=== PATIENT | male | born 1990 ===

== ENCOUNTER 2016-09-24 11:09 | Emergency (ER) | payer BC, OTHER ==
--- NOTE | 2016-09-24 13:51 | UC ---
Lower Extremity/Ankle HPI - HPI Summary HPI Summary: 26 y/o male presents to the urgent care c/o muscular pain on his left thigh since this morning when he woke up at 5am. Pt reports he did a lot of squats yesterday at the [employer] and he thinks he over did it. He reports he hasn't done exercise in a long time. Pt states muscle pain 7/10. It feels very sore specially with hyperextension of his quadriceps. He took 1 tab of Naproxen 500mg POand 2 tabs of ibuprofen 200mg PO at once to alleviate symptoms about 3 hrs ago. Pain improved a little bit. Pt denies fever, Knee pain, chest pain, N/ V/D. Pt has not other complains. - History of Current Complaint Chief Complaint: UCLowerExtremity Stated Complaint: MUSCLE PAIN HIP TO KNEE LT LEG Time Seen by Provider: 09/24/16 13:18 Hx Obtained From: Patient Onset/Duration: Gradual Onset, Lasting Hours Severity Initially: Moderate Severity Currently: Severe Pain Intensity: 8 Pain Scale Used: 0-10 Numeric Aggravating Factor(s): Ambulation Alleviating Factor(s): Rest, Ice, OTC Meds Able to Bear Weight: Yes - Risk Factors Gout Risk Factors: Negative DVT Risk Factors: Negative Septic Arthritis Risk Factor: Negative - Allergies/Home Medications Allergies/Adverse Reactions: Allergies Allergy/AdvReac Type Severity Reaction Status Date / Time No Known Allergies Allergy Verified 09/24/16 11:32 Home Medications: Home Medications Ibuprofen [Advil] 200 mg PO 09/24/16 [History] Naproxen [Naproxen DR 500 MG TAB] 500 mg PO 09/24/16 [History] PMH/Surg Hx/FS Hx/Imm Hx Previously Healthy: Yes Respiratory History: Asthma - controlled - Surgical History Surgical History: Yes - Family History Known Family History: Positive: None - Social History Occupation: Employed Full-time Lives: With Family Alcohol Use: Daily Substance Use Type: None Smoking Status (MU): Former Smoker Review of Systems Constitutional: Negative - Left thigh pain Skin: Negative Eyes: Negative ENT: Negative Respiratory: Negative Cardiovascular: Negative Gastrointestinal: Negative Genitourinary: Negative Motor: Negative Neurovascular: Negative Musculoskeletal: Decreased ROM All Other Systems Reviewed And Are Negative: Yes Physical Exam Triage Information Reviewed: Yes Appearance: Well-Appearing, No Pain Distress, Well-Nourished Vital Signs: Initial Vital Signs Temp 98.1 F 09/24/16 11:24 Pulse 54 09/24/16 11:24 Resp 16 09/24/16 11:24 BP 118/66 09/24/16 11:24 Pulse Ox 100 09/24/16 11:24 Vital Signs Reviewed: Yes Eye Exam: Normal Eyes: Positive: Conjunctiva Clear - PERRLA, EOMI, fundi grossly normal ENT Exam: Normal ENT: Positive: Normal ENT inspection, Hearing grossly normal, Pharynx normal, TMs normal Dental Exam: Normal Neck exam: Normal Neck: Positive: Supple, Nontender, No Lymphadenopathy Respiratory Exam: Normal Respiratory: Positive: Chest non-tender, Lungs clear, Normal breath sounds Cardiovascular Exam: Normal Cardiovascular: Positive: RRR, No Murmur, Pulses Normal Abdominal Exam: Normal Abdomen Description: Positive: Nontender, No Organomegaly, Soft. Negative: CVA Tenderness (R), CVA Tenderness (L) Bowel Sounds: Positive: Present Musculoskeletal: Positive: Strength Intact, ROM Intact, No Edema, Other: - tenderness to palpation at the mid left thigh and above the left patella, no swelling, erythema or bruises noted. FROM of left Hip and decrease extension of left knee due to knee pain. No tenderness over the patella or left knee. Positive pulses, sensation and capillary refill intact in allaextremities. Neurological Exam: Normal Psychological Exam: Normal Skin Exam: Normal Lower Extremity Course/Dx - Course Course Of Treatment: 26 y/o male presents to the urgent care c/o muscular pain on his left thigh since this morning when he woke up at 5am. Pt reports he did a lot of [facility] yesterday at the [facility] and he thinks he over did it. He reports he hasn't done exercise in a long time. Pt states muscle pain /10. It feels very sore specially with hyperextension of his quadriceps. He took 1 tab of Naproxen 500mg POand 2 tabs of ibuprofen 200mg PO at once to alleviate symptoms about 3 hrs ago. Pain improved a little bit. Pt denies fever, Knee pain, chest pain, N/V/D.Hx obtained. PE abnormal findings: tenderness to palpation at the mid left thigh and above the left patella, no swelling, erythema or bruises noted. FROM of left Hip and decrease extension of left knee due to knee pain. No tenderness over the patella or left knee. Positive pulses , sensation and capillary refill intact in all extremities. Pt vital signs wnl , Most likely a muscle strain. Pt's thigh wrapped with an wilda bandage and immobilized with a knee splint. Pt Rx Ibuprofen q6-8hr prn for pain, but to start next dose in 6hrs, increase fluid intake, RICE, f/u with Orthopedic Dr Ascencio if symptoms do not improve in 1 week. Pt understood and agreed and left the clinic ambulating. - Differential Dx/Diagnosis Differential Diagnosis/HQI/PQRI: Sprain, Strain, Tendonitis, Other - Muscle strain, muscle tear, Rabdomyolysis Provider Diagnoses: 1- Left knee Muscle strain Discharge - Discharge Plan Condition: Stable Disposition: HOME Patient Education Materials: Muscle Strain (ED) Referrals: [facility] [place]Outside] Dick Ascencio MD [Medical Doctor] - 1 Week No Primary Care Phys,NOPCP [Primary Care Provider] - Additional Instructions: Please continue taking Ibuprofen 600mg PO q6-8hr to alleviate pain. Rest, apply ice and elevate leg. Avoid strenuous exercise. Increase fluid intake with gatorade or water. Please f/u with Orthopedic is symptoms do not improve or worsen. If you feel weak and pain is increasing despite Ibuprofen please gp to the ER immediately.
== END 2016-09-24 14:00 | disposition home or self-care (01) ==
LOC: UCEAST 11:09
DX: S83.92XA Sprain of unspecified site of left knee, initial encounter (principal); X50.3XXA Overexertion from repetitive movements, initial encounter; Y93.B9 Activity, other involving muscle strengthening exercises; Y92.39 Other specified sports and athletic area as the place of occurrence of the external cause; Y99.8 Other external cause status
CPT/HCPCS: 99203; G0463

== ENCOUNTER 2017-02-18 16:52 | Emergency (ER) | payer BC ==
[2017-02-18 17:02] VITALS: BP 117/61
[2017-02-18] MEDS ORDERED: oxyCODONE/Acetamin 5/325 MG* TAB PO ONE (18:52)
[2017-02-18] MEDS ORDERED: Amoxicillin/Clavulanate TAB* 875 MG PO ONE (18:52)
--- NOTE | 2017-02-18 19:11 | UC ---
Cory Hendricks Gabriel, scribed for Carlos Mackey MD on 02/18/17 at 1849 . Dental HPI - HPI Summary HPI Summary: This patient is a 27 year old M presenting to [facility] with a chief complaint of dental pain since 02/11/17. The patient rates the pain 9/10 in severity. Patient reports chills, swollen face, and limited jaw mobility. Pt states he had all four wisdom teeth extracted a week ago and believes the sutures came undone while eating recently. This has caused increased pain and swelling. He is taking amoxicillin and hasnt smoked since extraction. - History of Current Complaint Chief Complaint: UCDentalProblem Stated Complaint: FACIAL SWELLING Time Seen by Provider: 02/18/17 18:38 Hx Obtained From: Patient Onset/Duration: Lasting Weeks - 1, Still Present Severity: Severe Pain Intensity: 9 Pain Scale Used: 0-10 Numeric Aggravating Factor(s): Chewing Related History: Previous Dental Care on Same Tooth - Allergies/Home Medications Allergies/Adverse Reactions: Allergies Allergy/AdvReac Type Severity Reaction Status Date / Time No Known Allergies Allergy Verified 09/24/16 11:32 Home Medications: Home Medications Amoxicillin PO (*) [Amoxicillin 500 MG CAP*] 500 mg PO TID 02/18/17 [History Confirmed 02/18/17] PMH/Surg Hx/FS Hx/Imm Hx Previously Healthy: Yes - Surgical History Surgical History: Yes Surgery Procedure, Year, and Place: wisdome teeth extraction - Family History Known Family History: Negative: Diabetes, Renal Disease - Social History Occupation: Employed Full-time Alcohol Use: Rare Substance Use Type: Marijuana Substance Use Comment - Amount & Last Used: once a week Smoking Status (MU): Smoker, Current Status Unknown Review of Systems Constitutional: Chills ENT: Dental Pain, Other - cheek swelling and limited jaw mobility All Other Systems Reviewed And Are Negative: Yes Physical Exam Triage Information Reviewed: Yes Appearance: Pain Distress Vital Signs: Initial Vital Signs Temp 98.7 F 02/18/17 16:57 Pulse 80 02/18/17 16:57 Resp 18 02/18/17 16:57 BP 117/61 02/18/17 16:57 Vital Signs Reviewed: Yes Eye Exam: Normal ENT: Positive: Other - the patient has limited opening of the mouth due to pain , he has swelling to the buccal side of his gingival area mandible with tenderness and tenseness over the left mandibular face, and into the upper left neck side. He has no stridor or drooling. Dental Complaint Course/Dx - Course Course Of Treatment: 27 yr old with facial and upper left neck swelling a week after his wisdom tooth extraction. Recommended to go to the ER for further eval by ambulance given the amount of swelling and also his inability to open mouth much. He signed out AMA. He states he is driving himself, and pain meds not given due to this. he has been already taking motrin with no relief. Risk of airway compromise understood. AMA signed. - Differential Dx/Diagnosis Provider Diagnoses: dental/facial neck abscess with pain left side. Discharge - Discharge Plan Condition: Good Disposition: AGAINST MEDICAL ADVICE Referrals: No Primary Care Phys,NOPCP [Primary Care Provider] - The documentation as recorded by the Cory pickard Gabriel accurately reflects the service I personally performed and the decisions made by me, Carlos Mackey MD.
== END 2017-02-18 19:00 | disposition left against medical advice (07) ==
LOC: UCEAST 16:52
DX: K04.7 Periapical abscess without sinus (principal); L02.01 Cutaneous abscess of face; R51 Headache
CPT/HCPCS: 99212; A9270-GY; G0463

== ENCOUNTER 2017-02-18 19:16 | Emergency (ER) | payer BC ==
[2017-02-18] MEDS ORDERED: Piperacillin/Tazobac ADVAN(*) 3.375 GM in NS 0.9% 100 ML* 100 ML IVPB ONE (20:45)
[2017-02-18] MEDS ORDERED: Vancomycin(*) 1,000 MG in NS 0.9% 250 ML* 250 ML IVPB ONE (20:46)
[2017-02-18] MEDS ORDERED: Dexamethasone IV* 4 MG/ML 1 ML (4 MG) IV SLOW PU ONE (20:46)
[2017-02-18] MEDS ORDERED: Morphine INJ* 4 MG/ML 1 ML CARPUJECT IV ONE ×2 (20:47→22:34)
[2017-02-18] MEDS ORDERED: NS 0.9% 1000 ML* 1,000 ML IV ONE (20:48)
[2017-02-18] MEDS ORDERED: Metoclopramide IV* 5 MG/ML 2 ML VIAL IV SLOW PU ONE (20:48)
[2017-02-18 21:11] LABS: Hematocrit 42 % (42-52); Hemoglobin 14.2 g/dl (14.0-18.0); Mean Corpuscular HGB Conc 34 g/dl (31-36); Mean Corpuscular Hemoglobin 30 pg (27-31); Mean Corpuscular Volume 89 fL (80-94); Mean Platelet Volume 8 um3 (7.4-10.4); Red Cell Distribution Width 13 % (10.5-15); White Blood Count 16.3 10^3/ul (3.5-10.8)
[2017-02-18 21:13] LABS: Add Diff/Slide Review? Slide Review Added; Comments Flag Yes
[2017-02-18 21:27] LABS: Albumin 4.4 g/dL (3.2-5.2); BUN/Creatinine Ratio 11.4 (8-20); Calcium 9.7 mg/dL (8.6-10.3); EGFR African American 135.7 (>60); EGFR Non-African American 105.5 (>60); Globulin 3.4 g/dL (2-4); Potassium 3.2 mmol/L (3.5-5.0); Total Bilirubin 0.5 mg/dL (0.2-1.0); Total Protein 7.8 g/dL (6.4-8.9)
[2017-02-18] MEDS ORDERED: Iohexol 300* (CONTRAST) 10 ML SDV IV ONE (21:40)
[2017-02-18] MEDS ORDERED: Potassium Chloride LIQUID* 20 MEQ PACKET PO ONE (21:43)
[2017-02-18] MEDS ORDERED: Morphine INJ* 4 MG/ML 1 ML CARPUJECT ONE (22:35)
[2017-02-19] MEDS ORDERED: oxyCODONE/Acetamin 5/325 MG* TAB PO PRN
--- NOTE | 2017-02-19 00:05 | ED ---
Noble Hendricks Rebecca, scribed for Moe Alexandre MD on 02/18/17 at 2041 . Complex/Multi-Sys Presentation - HPI Summary HPI Summary: Pt is a 27 y/o M who presents to ED c/o dental pain s/p wisdom tooth extraction. 1 week ago, he had all 4 wisdom teeth extracted and was prescribed Amoxicillin TID and steroids. He has 1 dose of amoxicillin left and his steroids were completed after 5 days. Pt's lower teeth were impacted and he had an infection in the left lower wisdom tooth prior to the surgery. Swelling had been improving, though on Saturday (3 days ago) the swelling gradually began worsening, particularly worse this morning. Associated pain is currently severe , ranked 10/10. Sx aggravated and alleviated by nothing. Additionally c/o subjective fever. Denies drooling and change in voice. Confirms he can tolerate PO intake. - History Of Current Complaint Chief Complaint: EDDentalPain Time Seen by Provider: 02/18/17 20:28 Hx Obtained From: Patient Onset/Duration: Still Present, Worse Since - 3 days ago Severity Currently: Severe - 12/18 Location: Pain At: - Lower left dental pain Aggravating Factor(s): Nothing Alleviating Factor(s): Nothing Associated Signs And Symptoms: Positive: Fever - Allergies/Home Medications Allergies/Adverse Reactions: Allergies Allergy/AdvReac Type Severity Reaction Status Date / Time No Known Allergies Allergy Verified 02/18/17 19:26 PMH/Surg Hx/FS Hx/Imm Hx Respiratory History: Reports: Hx Asthma EENT History: Reports: Hx Seasonal Allergies - Surgical History Surgery Procedure, Year, and Place: wisdome teeth extraction Infectious Disease History: No Infectious Disease History: Denies: Traveled Outside the [place] in Last 30 Days - Family History Known Family History: Negative: Diabetes, Renal Disease - Social History Alcohol Use: Rare Substance Use Type: Reports: Marijuana Substance Use Comment - Amount & Last Used: once a week Smoking Status (MU): Smoker, Current Status Unknown Review of Systems Positive: Fever Positive: Dental Pain, Other - Dental swelling; NEGATIVE: Drooling, change in voice All Other Systems Reviewed And Are Negative: Yes Physical Exam - Summary Physical Exam Summary: VITAL SIGNS: Reviewed. GENERAL: ~Patient is a well-developed and nourished male who is lying comfortable in the stretcher. Patient is not in any acute respiratory distress. HEAD AND FACE: No signs of trauma. No ecchymosis, hematomas or skull depressions. No sinus tenderness. EYES: PERRLA, EOMI x 2, No injected conjunctiva, no nystagmus. EARS: Hearing grossly intact. Ear canals and tympanic membranes are within normal limits. MOUTH: Swelling over the left mandible and left cheek, oral pharynx is wide open NECK: Supple, trachea is midline, no adenopathy, no JVD, no carotid bruit, no c- spine tenderness, neck with full ROM. CHEST: Symmetric, no tenderness at palpation LUNGS: Clear to auscultation bilaterally. No wheezing or crackles. CVS: Regular rate and rhythm, S1 and S2 present, no murmurs or gallops appreciated. ABDOMEN: Soft, non-tender. No signs of distention. No rebound no guarding, and no masses palpated. Bowel sounds are normal. EXTREMITIES: FROM in all major joints, no edema, no cyanosis or clubbing. NEURO: Alert and oriented x 3. No acute neurological deficits. Speech is normal and follows commands. SKIN: Dry and warm Triage Information Reviewed: Yes Vital Signs On Initial Exam: Initial Vitals Temp Pulse Resp BP Pulse Ox 98.0 F 80 20 125/66 100 02/18/17 19:23 02/18/17 19:23 02/18/17 19:23 02/18/17 19:23 02/18/17 19:23 Vital Signs Reviewed: Yes Diagnostics - Vital Signs Vital Signs Temp Pulse Resp BP Pulse Ox 02/18/17 19:23 98.0 F 80 20 125/66 100 - Laboratory Result Diagrams: 02/18/17 21:00 02/18/17 21:00 Lab Statement: Any lab studies that have been ordered have been reviewed, and results considered in the medical decision making process. - CT Maxillofacial CT CT Interpretation Completed By: Radiologist - Facial CT performed without IV contrast and multi plantar reconstruction performed. Large low-density collection with enhancing wall noted lateral to the left mandible molars, measuring approximately 3 x 1.2 cm in axial dimension consistent with a periosteal abscess. Marked overlying soft tissue swelling and subcutaneous edema is present. Evidence of bilateral mandibular third molar extraction. No radiopaque foreign body is present. No focal bony defect involving the left mandible noted. No evidence of acute sinusitis or mastoiditis. Pathologically enlarged left submandibular gland lymph node is seen most likely reactive to the local infection. There are other mild reactive level 2 and level 5 lymph nodes also on the left. Left parotid glands unremarkable. Bilateral thyroid glands normal. Dr. Alexandre reviewed this radiology report. Complex Multi-Symp Course/Dx Assessment/Plan: Pt is a 27 y/o M who presents to ED c/o dental pain s/p wisdom tooth extraction 1 week ago, prescribed Amoxicillin TID and steroids. He has 1 dose of amoxicillin left and his steroids were completed after 5 days. Pt's lower teeth were impacted and he had an infection in the left lower wisdom tooth prior to the surgery. Swelling had been improving, though on Saturday (3 days ago) the swelling gradually began worsening, particularly worse this morning. Associated pain is currently severe, ranked 10/10. Additionally c/o subjective fever. Denies drooling and change in voice. Confirms he can tolerate PO intake. CT Maxillofacial results above. Reviewed lab results, imaging results. Pt is with his mother, advised to see his roal surgeon tomorrow morning for follow-up regarding his abscess. Pt has no airway compromise. Pt feels better at this time and swelling has improved. Pt will be given percocet for pain. Pt will be D/C to home with Dx of left mandibular abscess. Medications reviewed. - Diagnoses Provider Diagnoses: Mandibular abscess Discharge - Discharge Plan Condition: Stable Disposition: HOME Patient Education Materials: Abscess (ED) Referrals: [facility] [place] [facility] [Outside] Additional Instructions: RETURN TO EMERGENCY DEPARTMENT FOR ANY NEW OR WORSENING SYMPTOMS. Follow-up with your oral surgeon tomorrow morning. The documentation as recorded by the Noble pickard Rebecca accurately reflects the service I personally performed and the decisions made by me, Moe Alexandre MD.
[2017-02-19 00:59] VITALS: BP 124/71
--- NOTE | 2017-02-19 07:33 | RAD ---
HISTORY: Abscess status post molar extraction COMPARISONS: None TECHNIQUE: Multiple contiguous axial CT scans were obtained of the face with intravenous contrast, with coronal and sagittal multiplanar reformations. FINDINGS: BONES: There is no displaced fracture or dislocation. The orbital rim is intact. The zygomatic arch is intact. The pterygoid plates are intact. Patient is status post bilateral mandibular and maxillary last molar extraction. ORBITS: The globes are round. The optic nerves are symmetric. The extraocular musculature is normal. There is no post septal or intraconal inflammatory change. There is no retrobulbar hematoma. PARANASAL SINUSES: The paranasal sinuses are clear. BRAIN AND SOFT TISSUE: There is peripheral enhancing loculated fluid collection along the angle of the mandible on the left within the mesenteric space, measuring approximately 2.3 x 1.2 x 1.9 cm in size. There is associated inflammatory change adjacent soft tissue. There are local reactive lymph nodes. OTHER: None. IMPRESSION: THERE IS A LOCULATED FLUID COLLECTION ALONG THE ANGLE OF THE LEFT MANDIBLE CONSISTENT WITH ABSCESS, MOST LIKELY ODONTOGENIC IN ORIGIN GIVEN THE LOCATION AND CLINICAL HISTORY
== END 2017-02-19 00:58 | disposition home or self-care (01) ==
LOC: ED 19:16
DX: K12.2 Cellulitis and abscess of mouth (principal); K08.409 Partial loss of teeth, unspecified cause, unspecified class; R50.9 Fever, unspecified; J45.909 Unspecified asthma, uncomplicated; F12.90 Cannabis use, unspecified, uncomplicated; Z72.0 Tobacco use
CPT/HCPCS: 36415; 70487; 80053; 83605; 85025; 87040; 96365; 96375; 96376; 99285; A9270-GY; J1100; J2270; J2543; J2765; J3370; Q9967